=== PATIENT | male | born 1945 | race Caucasian/White ===

== ENCOUNTER → 2019-04-17 | Outpatient (CLI) | payer MEDICARE ==
[~2019-04-17] MED LIST: ASPIRIN81 MG PO; LANTUS100 UNITS/ SQ; LISINOPRIL10 MG; LOVASTATIN40 MG; METFORMIN HCL1000 MG; MULTI-VITAMIN1 EACH PO; NOVOLOG100 UNIT/1 SQ; PLAVIX75 MG PO
--- NOTE | 2019-04-17 10:05 | Diagnostic Imaging Report ---
EXAMINATION: PA and lateral views of the chest. COMPARISON: None CLINICAL HISTORY: Cough DISCUSSION: The lungs are well-inflated. No focal airspace consolidation, pleural effusion, or pneumothorax. Tortuous thoracic aorta with atherosclerotic calcification. Normal heart size. No overt pulmonary edema. No acute osseous abnormality. 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 IMPRESSION: No acute cardiopulmonary abnormalities. Signed by: Dr. John Perez M.D. on 04/17/2019 10:01 AM
== END ==
LOC: RAD 09:20
DX: R05 Cough (principal)
CPT/HCPCS: 71046

== ENCOUNTER 2023-05-24 13:11 | Inpatient (IN) | payer MEDICARE ==
[~2023-05-24] VITALS: Ht 167.6 cm; Wt 104.3 kg
[2023-05-24 14:44] LABS: BASOPHILS % 0.3 % (0.0-1.0); EOSINOPHILS # (AUTO) 0.2 (0.0-0.4); EOSINOPHILS % 1.6 % (0.0-6.0); HEMATOCRIT 43.1 % (38.2-49.6); HEMOGLOBIN 13.9 g/dL (14.0-18.0); LYMPHOCYTES # (AUTO) 0.8 (1.0-3.2); LYMPHOCYTES % 6.9 % (18.0-39.1); MEAN CORPUSCULAR HEMOGLOBIN 30.2 pg (28-32); MEAN CORPUSCULAR HGB CONC 32.3 g/dL (31-35); MEAN CORPUSCULAR VOLUME 93.5 fL (81-99); MONOCYTES # (AUTO) 0.9 (0.2-0.8); MONOCYTES % 7.5 % (4.4-11.3); NEUTROPHILS % 83.3 % (38.7-80.0); PLATELET COUNT 267 x10e3/uL (140-360); RED BLOOD COUNT 4.61 x10e6/uL (4.3-5.7); RED CELL DISTRIBUTION WIDTH 13.2 % (11.7-14.4); WHITE BLOOD COUNT 12.02 x10e3/uL (4.8-10.8)
[2023-05-24 14:58] LABS: ALBUMIN 3.8 g/dL (3.5-5.0); ALBUMIN/GLOBULIN RATIO 1.3 (0.8-2.0); ANION GAP 15.3 mmol/L (8-16); BILIRUBIN,TOTAL 0.6 mg/dL (0.2-1.2); CALCIUM 8.7 mg/dL (8.4-10.2); CREATININE, SERUM 1.14 mg/dL (0.72-1.25); POTASSIUM 4.3 mmol/L (3.5-5.1); TOTAL PROTEIN 6.8 g/dL (6.5-8.1)
[2023-05-24] MEDS ORDERED: SODIUM CHLORIDE 0.9% 1000ML 1,000 ML IV STA (14:59)
[2023-05-24 15:08] LABS: B-TYPE NATRIURETIC PEPTIDE2 224.5 pg/mL (0-100)
[2023-05-24] MEDS ORDERED: Vancomycin IV 1 GM in SODIUM CHLORIDE 0.9% 250ML 250 ML IV ONE (15:30)
[2023-05-24 16:14] VITALS: PULSE 75; RESP 20; O2SAT 97
[2023-05-24 16:36] LABS: TROPONIN I 2.263 ng/mL (0-0.300)
[2023-05-24] MEDS: SODIUM CHLORIDE 0.9% 1000ML 1,000 ML IV SCH (16:47)
[2023-05-24] MEDS ORDERED: LASIX20 MG PO (17:08)
[2023-05-24] MEDS ORDERED: BASAGLAR K100 UNIT/1 SQ (17:08)
[2023-05-24] MEDS ORDERED: ONDANSETRON HCL INJ 2MG/ML 2ML 2 MG/ML VIAL IV PRN (17:15)
[2023-05-24] MEDS ORDERED: HYDRALAZINE HCL 20 MG/ML VIAL IV PRN (17:15)
[2023-05-24] MEDS ORDERED: DEXTROSE 50% SYRINGE 50 ML IV PRN (17:15)
[2023-05-24] MEDS ORDERED: ACETAMINOPHEN 325 MG TAB PO PRN (17:15)
[2023-05-24] MEDS ORDERED: IOPAMIDOL 370 MG/ML 100 ML INFUS..BTL INJ ONE (17:44)
[2023-05-24 20:00] VITALS: BP 141/69; PULSE 101; RESP 20; TEMP 97.9; O2SAT 98
[2023-05-24] MEDS: INSULIN LISPRO 100 UNIT/1 ML 3ML VIAL SQ SCH (20:39)
[2023-05-24 21:00] VITALS: BP 141/69; PULSE 101; RESP 20; TEMP 97.9; O2SAT 98
[2023-05-24 23:29] LABS: CLARITY,URINE CLEAR (CLEAR); COLOR,URINE YELLOW (YELLOW); GLUCOSE, URINE NEGATIVE (NEGATIVE); LEUKOCYTE ESTERASE ,URINE NEGATIVE (NEGATIVE); NITRITE,URINE NEGATIVE (NEGATIVE); PH,URINE 7 (5 - 7); PROTEIN,URINE DIPSTICK NEGATIVE (NEGATIVE)
[2023-05-24 23:30] LABS: BILIRUBIN,URINE NEGATIVE (NEGATIVE); KETONES,URINE 2+ (NEGATIVE)
[2023-05-24 23:56] LABS: BACTERIA,URINE FEW /HPF; EPITHELIAL CELLS,URINE FEW /LPF; RBC,URINE 0-5 /HPF (0-5); WBC,URINE (MAN) 0-5 /HPF (0-5)
[2023-05-25] VITALS (8 sets, daily range): BP systolic 122–187; BP diastolic 50–84; PULSE 89–109; RESP 17–20; TEMP 98.1–98.9; O2SAT 92–96
[2023-05-25] MEDS: SODIUM CHLORIDE 0.9% 1000ML 1,000 ML IV SCH (00:11)
[2023-05-25 01:12] LABS: TROPONIN I 2.485 ng/mL (0-0.300)
[2023-05-25 06:26] LABS: BASOPHILS # (AUTO) 0.1 (0.0-0.1); BASOPHILS % 0.5 % (0.0-1.0); EOSINOPHILS # (AUTO) 0.3 (0.0-0.4); EOSINOPHILS % 2.6 % (0.0-6.0); HEMATOCRIT 36.9 % (38.2-49.6); HEMOGLOBIN 12.1 g/dL (14.0-18.0); LYMPHOCYTES # (AUTO) 1.1 (1.0-3.2); LYMPHOCYTES % 10.1 % (18.0-39.1); MEAN CORPUSCULAR HGB CONC 32.8 g/dL (31-35); MEAN CORPUSCULAR VOLUME 91.6 fL (81-99); MONOCYTES % 9.1 % (4.4-11.3); NEUTROPHILS # (AUTO) 8.5 (2.1-6.9); NEUTROPHILS % 77.2 % (38.7-80.0); PLATELET COUNT 252 x10e3/uL (140-360); RED BLOOD COUNT 4.03 x10e6/uL (4.3-5.7); RED CELL DISTRIBUTION WIDTH 13.2 % (11.7-14.4); WHITE BLOOD COUNT 10.99 x10e3/uL (4.8-10.8)
[2023-05-25 06:49] LABS: ANION GAP 14.1 mmol/L (8-16); CALCIUM 8.2 mg/dL (8.4-10.2); CREATININE, SERUM 0.89 mg/dL (0.72-1.25); POTASSIUM 4.1 mmol/L (3.5-5.1); TOTAL PROTEIN 5.9 g/dL (6.5-8.1)
[2023-05-25 07:07] LABS: CHOL/HDL RATIO 2.9 (3.9-4.7)
[2023-05-25] MEDS: INSULIN LISPRO 100 UNIT/1 ML 3ML VIAL SQ SCH ×4 (07:30→21:39)
[2023-05-25] MEDS: SENNOSIDES 8.6 MG TAB PO SCH (09:00)
[2023-05-25] MEDS ORDERED: FUROSEMIDE 20 MG TAB PO SCH (09:00)
[2023-05-25 09:54] LABS: TROPONIN I 1.882 ng/mL (0-0.300)
[2023-05-25] MEDS: ASPIRIN 81 MG CHEW TAB PO SCH (12:50)
[2023-05-25] MEDS: MULTIVITAMINS/MINERALS TAB PO SCH (12:50)
[2023-05-25] MEDS: SIMVASTATIN 20 MG TAB PO SCH (12:51)
[2023-05-25] MEDS: CLOPIDOGREL BISULFATE 75 MG TAB PO SCH (12:51)
[2023-05-25] MEDS ORDERED: MUPIROCIN 2% OINT 22 GM TUBE TOP SCH (13:00)
[2023-05-25] MEDS: LISINOPRIL 10 MG TAB PO SCH (13:19)
[2023-05-25] MEDS ORDERED: DAPTOMYCIN 500mg 10ML 1,000 MG in SODIUM CHLORIDE 0.9% 100 ML IV ONE (13:30)
[2023-05-25] MEDS: ENOXAPARIN SOD INJ 40 MG/0.4 ML SYR SC SCH (17:01)
[2023-05-25] MEDS: NYSTATIN 15 GM POWDER UD BTL TOP SCH (17:03)
[2023-05-25] MEDS ORDERED: METOPROLOL TARTRATE 50 MG TAB PO ONE (19:45)
[2023-05-25] MEDS ORDERED: MAGNESIUM/ALUMINUM/SIMETHICONE 30 ML UDC PO PRN (20:00)
[2023-05-25] MEDS ORDERED: MAGNESIUM/ALUMINUM/SIMETHICONE 30 ML UDC PO ONE (20:30)
[2023-05-25] MEDS ORDERED: PANTOPRAZOLE SOD 40 MG TABEC PO ONE (20:30)
[2023-05-25] MEDS ORDERED: INSULIN GLARGINE 100 UNITS/ML VIAL SQ SCH (21:00)
[2023-05-26] VITALS (9 sets, daily range): BP systolic 108–128; BP diastolic 56–67; PULSE 77–96; RESP 18–22; TEMP 97.6–98.9; O2SAT 92–96
[2023-05-26] MEDS: METOPROLOL TARTRATE 25 MG TAB PO SCH ×4 (00:45→17:38)
[2023-05-26] MEDS ORDERED: SODIUM CHLORIDE 0.9% 250ML 250 ML ONE (04:19)
[2023-05-26 06:22] LABS: BASOPHILS # (AUTO) 0.1 (0.0-0.1); BASOPHILS % 0.5 % (0.0-1.0); EOSINOPHILS # (AUTO) 0.4 (0.0-0.4); EOSINOPHILS % 2.7 % (0.0-6.0); HEMATOCRIT 39.5 % (38.2-49.6); HEMOGLOBIN 12.7 g/dL (14.0-18.0); LYMPHOCYTES # (AUTO) 1.2 (1.0-3.2); LYMPHOCYTES % 9.4 % (18.0-39.1); MEAN CORPUSCULAR HEMOGLOBIN 30.5 pg (28-32); MEAN CORPUSCULAR HGB CONC 32.2 g/dL (31-35); MONOCYTES # (AUTO) 1.1 (0.2-0.8); MONOCYTES % 8.7 % (4.4-11.3); NEUTROPHILS # (AUTO) 10.3 (2.1-6.9); NEUTROPHILS % 78.2 % (38.7-80.0); PLATELET COUNT 250 x10e3/uL (140-360); RED BLOOD COUNT 4.16 x10e6/uL (4.3-5.7); RED CELL DISTRIBUTION WIDTH 13.2 % (11.7-14.4); WHITE BLOOD COUNT 13.13 x10e3/uL (4.8-10.8)
[2023-05-26 07:27] LABS: ALBUMIN/GLOBULIN RATIO 0.9 (0.8-2.0); BILIRUBIN,TOTAL 0.8 mg/dL (0.2-1.2); CALCIUM 8.3 mg/dL (8.4-10.2); CREATININE, SERUM 1.05 mg/dL (0.72-1.25); TOTAL PROTEIN 6.2 g/dL (6.5-8.1)
[2023-05-26] MEDS: SENNOSIDES 8.6 MG TAB PO SCH (09:06)
[2023-05-26] MEDS: ASPIRIN 81 MG CHEW TAB PO SCH (09:06)
[2023-05-26] MEDS: MULTIVITAMINS/MINERALS TAB PO SCH (09:06)
[2023-05-26] MEDS: PANTOPRAZOLE SOD 40 MG TABEC PO SCH (09:06)
[2023-05-26] MEDS: LISINOPRIL 10 MG TAB PO SCH (09:07)
[2023-05-26] MEDS: CLOPIDOGREL BISULFATE 75 MG TAB PO SCH (09:07)
[2023-05-26] MEDS: SIMVASTATIN 20 MG TAB PO SCH (09:07)
[2023-05-26] MEDS: MUPIROCIN 2% OINT 22 GM TUBE TOP SCH (09:08)
[2023-05-26] MEDS: NYSTATIN 15 GM POWDER UD BTL TOP SCH ×2 (09:09→17:35)
[2023-05-26] MEDS: INSULIN LISPRO 100 UNIT/1 ML 3ML VIAL SQ SCH ×4 (09:10→21:00)
[2023-05-26] MEDS: LEVALBUTEROL HCL SOLN NEBU 0.63 MG/3 ML NEB INH SCH ×2 (11:14→19:17)
[2023-05-26] MEDS: FUROSEMIDE INJ 10 MG/ML 4 ML VIAL IV SCH ×2 (14:43→17:34)
[2023-05-26] MEDS: ENOXAPARIN SOD INJ 40 MG/0.4 ML SYR SC SCH (17:35)
[2023-05-26] MEDS: INSULIN GLARGINE 100 UNITS/ML VIAL SQ SCH (21:31)
[2023-05-27] VITALS (12 sets, daily range): BP systolic 111–141; BP diastolic 50–67; PULSE 73–108; RESP 18–22; TEMP 97.8–98.6; O2SAT 64–100
[2023-05-27] MEDS: METOPROLOL TARTRATE 25 MG TAB PO SCH ×4 (00:43→17:44)
[2023-05-27] MEDS: LEVALBUTEROL HCL SOLN NEBU 0.63 MG/3 ML NEB INH SCH ×4 (01:25→17:34)
[2023-05-27 08:41] LABS: BASOPHILS # (AUTO) 0.1 (0.0-0.1); BASOPHILS % 0.5 % (0.0-1.0); EOSINOPHILS # (AUTO) 0.5 (0.0-0.4); EOSINOPHILS % 3.8 % (0.0-6.0); HEMATOCRIT 37.9 % (38.2-49.6); HEMOGLOBIN 12.3 g/dL (14.0-18.0); LYMPHOCYTES # (AUTO) 1.1 (1.0-3.2); LYMPHOCYTES % 9.1 % (18.0-39.1); MEAN CORPUSCULAR HEMOGLOBIN 30.4 pg (28-32); MEAN CORPUSCULAR HGB CONC 32.5 g/dL (31-35); MEAN CORPUSCULAR VOLUME 93.8 fL (81-99); MONOCYTES % 8.1 % (4.4-11.3); NEUTROPHILS # (AUTO) 9.5 (2.1-6.9); NEUTROPHILS % 78.1 % (38.7-80.0); PLATELET COUNT 226 x10e3/uL (140-360); RED BLOOD COUNT 4.04 x10e6/uL (4.3-5.7); RED CELL DISTRIBUTION WIDTH 13.2 % (11.7-14.4); WHITE BLOOD COUNT 12.15 x10e3/uL (4.8-10.8)
[2023-05-27 09:02] LABS: ALBUMIN 2.9 g/dL (3.5-5.0); ALBUMIN/GLOBULIN RATIO 0.8 (0.8-2.0); ANION GAP 16.9 mmol/L (8-16); BILIRUBIN,TOTAL 0.9 mg/dL (0.2-1.2); CALCIUM 8.5 mg/dL (8.4-10.2); CREATININE, SERUM 1.1 mg/dL (0.72-1.25); POTASSIUM 3.9 mmol/L (3.5-5.1); TOTAL PROTEIN 6.4 g/dL (6.5-8.1)
[2023-05-27] MEDS: ASPIRIN 81 MG CHEW TAB PO SCH (09:43)
[2023-05-27] MEDS: MULTIVITAMINS/MINERALS TAB PO SCH (09:43)
[2023-05-27] MEDS: SENNOSIDES 8.6 MG TAB PO SCH (09:44)
[2023-05-27] MEDS: CLOPIDOGREL BISULFATE 75 MG TAB PO SCH (09:44)
[2023-05-27] MEDS: LISINOPRIL 10 MG TAB PO SCH (09:44)
[2023-05-27] MEDS: SIMVASTATIN 20 MG TAB PO SCH (09:44)
[2023-05-27] MEDS: PANTOPRAZOLE SOD 40 MG TABEC PO SCH (09:44)
[2023-05-27] MEDS: NYSTATIN 15 GM POWDER UD BTL TOP SCH ×2 (09:45→17:44)
[2023-05-27] MEDS: MUPIROCIN 2% OINT 22 GM TUBE TOP SCH (09:45)
[2023-05-27] MEDS: FUROSEMIDE INJ 10 MG/ML 4 ML VIAL IV SCH ×2 (09:45→17:54)
[2023-05-27] MEDS: INSULIN LISPRO 100 UNIT/1 ML 3ML VIAL SQ SCH ×4 (09:46→20:29)
[2023-05-27] MEDS ORDERED: METOLAZONE 5 MG TAB PO ONE (17:00)
[2023-05-27] MEDS: ENOXAPARIN SOD INJ 40 MG/0.4 ML SYR SC SCH (17:44)
[2023-05-27] MEDS: INSULIN GLARGINE 100 UNITS/ML VIAL SQ SCH (20:28)
[2023-05-28] VITALS (10 sets, daily range): BP systolic 116–119; BP diastolic 46–98; PULSE 75–99; RESP 16–21; TEMP 98.1–98.2; O2SAT 93–99
[2023-05-28] MEDS: METOPROLOL TARTRATE 25 MG TAB PO SCH ×4 (00:19→18:01)
[2023-05-28] MEDS: LEVALBUTEROL HCL SOLN NEBU 0.63 MG/3 ML NEB INH SCH ×4 (01:39→19:49)
[2023-05-28 06:45] LABS: ALBUMIN 2.9 g/dL (3.5-5.0); ALBUMIN/GLOBULIN RATIO 0.7 (0.8-2.0); ANION GAP 18.4 mmol/L (8-16); BILIRUBIN,TOTAL 0.7 mg/dL (0.2-1.2); CALCIUM 8.7 mg/dL (8.4-10.2); CREATININE, SERUM 1.14 mg/dL (0.72-1.25); POTASSIUM 4.4 mmol/L (3.5-5.1); TOTAL PROTEIN 6.8 g/dL (6.5-8.1)
[2023-05-28] MEDS: ASPIRIN 81 MG CHEW TAB PO SCH (09:12)
[2023-05-28] MEDS: FUROSEMIDE INJ 10 MG/ML 4 ML VIAL IV SCH ×2 (09:12→18:00)
[2023-05-28] MEDS: LISINOPRIL 10 MG TAB PO SCH (09:12)
[2023-05-28] MEDS: SIMVASTATIN 20 MG TAB PO SCH (09:12)
[2023-05-28] MEDS: MULTIVITAMINS/MINERALS TAB PO SCH (09:13)
[2023-05-28] MEDS: CLOPIDOGREL BISULFATE 75 MG TAB PO SCH (09:13)
[2023-05-28] MEDS: SENNOSIDES 8.6 MG TAB PO SCH (09:13)
[2023-05-28] MEDS: INSULIN LISPRO 100 UNIT/1 ML 3ML VIAL SQ SCH ×4 (09:14→21:00)
[2023-05-28] MEDS: PANTOPRAZOLE SOD 40 MG TABEC PO SCH (09:14)
[2023-05-28] MEDS: MUPIROCIN 2% OINT 22 GM TUBE TOP SCH (09:21)
[2023-05-28] MEDS: NYSTATIN 15 GM POWDER UD BTL TOP SCH ×2 (09:21→18:00)
[2023-05-28 11:57] LABS: BASOPHILS # (AUTO) 0.1 (0.0-0.1); BASOPHILS % 0.7 % (0.0-1.0); EOSINOPHILS # (AUTO) 0.7 (0.0-0.4); EOSINOPHILS % 5.7 % (0.0-6.0); HEMATOCRIT 40.2 % (38.2-49.6); HEMOGLOBIN 13.1 g/dL (14.0-18.0); LYMPHOCYTES # (AUTO) 1.3 (1.0-3.2); LYMPHOCYTES % 11.1 % (18.0-39.1); MEAN CORPUSCULAR HEMOGLOBIN 30.3 pg (28-32); MEAN CORPUSCULAR HGB CONC 32.6 g/dL (31-35); MEAN CORPUSCULAR VOLUME 93.1 fL (81-99); MONOCYTES # (AUTO) 0.9 (0.2-0.8); MONOCYTES % 8.2 % (4.4-11.3); NEUTROPHILS # (AUTO) 8.5 (2.1-6.9); PLATELET COUNT 265 x10e3/uL (140-360); RED BLOOD COUNT 4.32 x10e6/uL (4.3-5.7); RED CELL DISTRIBUTION WIDTH 13.1 % (11.7-14.4); WHITE BLOOD COUNT 11.49 x10e3/uL (4.8-10.8)
[2023-05-28] MEDS: ONDANSETRON HCL 4 MG ORAL DISINTEGRATING TAB PO PRN ×2 (17:25→17:26)
[2023-05-28] MEDS: ENOXAPARIN SOD INJ 40 MG/0.4 ML SYR SC SCH (18:00)
[2023-05-28] MEDS: INSULIN GLARGINE 100 UNITS/ML VIAL SQ SCH (21:00)
[2023-05-29] VITALS (11 sets, daily range): BP systolic 120–146; BP diastolic 54–69; PULSE 76–92; RESP 18–22; TEMP 98.1–98.6; O2SAT 94–98
[2023-05-29] MEDS: METOPROLOL TARTRATE 25 MG TAB PO SCH ×2 (00:41→06:11)
[2023-05-29] MEDS: LEVALBUTEROL HCL SOLN NEBU 0.63 MG/3 ML NEB INH SCH ×4 (01:13→19:08)
[2023-05-29 06:14] LABS: BASOPHILS # (AUTO) 0.1 (0.0-0.1); BASOPHILS % 0.6 % (0.0-1.0); EOSINOPHILS # (AUTO) 0.9 (0.0-0.4); EOSINOPHILS % 6.8 % (0.0-6.0); HEMATOCRIT 41.5 % (38.2-49.6); HEMOGLOBIN 13.5 g/dL (14.0-18.0); LYMPHOCYTES # (AUTO) 1.3 (1.0-3.2); LYMPHOCYTES % 10.4 % (18.0-39.1); MEAN CORPUSCULAR HEMOGLOBIN 30.2 pg (28-32); MEAN CORPUSCULAR HGB CONC 32.5 g/dL (31-35); MEAN CORPUSCULAR VOLUME 92.8 fL (81-99); MONOCYTES # (AUTO) 1.2 (0.2-0.8); MONOCYTES % 9.5 % (4.4-11.3); NEUTROPHILS # (AUTO) 9.3 (2.1-6.9); NEUTROPHILS % 72.1 % (38.7-80.0); PLATELET COUNT 293 x10e3/uL (140-360); RED BLOOD COUNT 4.47 x10e6/uL (4.3-5.7); WHITE BLOOD COUNT 12.84 x10e3/uL (4.8-10.8)
[2023-05-29 06:30] LABS: ALBUMIN/GLOBULIN RATIO 0.8 (0.8-2.0); ANION GAP 16.2 mmol/L (8-16); BILIRUBIN,TOTAL 0.6 mg/dL (0.2-1.2); CALCIUM 9.5 mg/dL (8.4-10.2); CREATININE, SERUM 1.35 mg/dL (0.72-1.25); POTASSIUM 4.2 mmol/L (3.5-5.1); TOTAL PROTEIN 6.9 g/dL (6.5-8.1)
[2023-05-29] MEDS: FUROSEMIDE INJ 10 MG/ML 4 ML VIAL IV SCH (09:27)
[2023-05-29] MEDS: CLOPIDOGREL BISULFATE 75 MG TAB PO SCH (09:27)
[2023-05-29] MEDS: MULTIVITAMINS/MINERALS TAB PO SCH (09:27)
[2023-05-29] MEDS: PANTOPRAZOLE SOD 40 MG TABEC PO SCH (09:27)
[2023-05-29] MEDS: ASPIRIN 81 MG CHEW TAB PO SCH (09:27)
[2023-05-29] MEDS: SIMVASTATIN 20 MG TAB PO SCH (09:28)
[2023-05-29] MEDS: SENNOSIDES 8.6 MG TAB PO SCH (09:28)
[2023-05-29] MEDS: NYSTATIN 15 GM POWDER UD BTL TOP SCH ×2 (09:32→17:07)
[2023-05-29] MEDS: MUPIROCIN 2% OINT 22 GM TUBE TOP SCH (09:33)
[2023-05-29] MEDS: LISINOPRIL 10 MG TAB PO SCH (09:42)
[2023-05-29] MEDS: INSULIN GLARGINE 100 UNITS/ML VIAL SQ SCH ×2 (09:50→21:00)
[2023-05-29] MEDS: INSULIN LISPRO 100 UNIT/1 ML 3ML VIAL SQ SCH ×4 (09:50→21:00)
[2023-05-29] MEDS ORDERED: METOPROLOL SUCCINATE 50 MG TAB XL PO SCH (10:45)
[2023-05-29] MEDS: METOPROLOL SUCCINATE 25 MG TAB XL PO SCH (12:12)
[2023-05-29] MEDS: ENOXAPARIN SOD INJ 40 MG/0.4 ML SYR SC SCH (17:03)
[2023-05-30] VITALS (7 sets, daily range): BP systolic 113–142; BP diastolic 48–59; PULSE 81–96; RESP 18–20; TEMP 97.8–98.7; O2SAT 93–98
[2023-05-30] MEDS: LEVALBUTEROL HCL SOLN NEBU 0.63 MG/3 ML NEB INH SCH ×3 (00:22→11:59)
[2023-05-30 07:18] LABS: BASOPHILS # (AUTO) 0.1 (0.0-0.1); BASOPHILS % 0.6 % (0.0-1.0); EOSINOPHILS # (AUTO) 0.9 (0.0-0.4); EOSINOPHILS % 7.8 % (0.0-6.0); HEMATOCRIT 41.4 % (38.2-49.6); HEMOGLOBIN 13.6 g/dL (14.0-18.0); LYMPHOCYTES # (AUTO) 1.4 (1.0-3.2); LYMPHOCYTES % 12.4 % (18.0-39.1); MEAN CORPUSCULAR HEMOGLOBIN 29.8 pg (28-32); MEAN CORPUSCULAR HGB CONC 32.9 g/dL (31-35); MEAN CORPUSCULAR VOLUME 90.6 fL (81-99); MONOCYTES % 8.7 % (4.4-11.3); NEUTROPHILS # (AUTO) 7.8 (2.1-6.9); PLATELET COUNT 312 x10e3/uL (140-360); RED BLOOD COUNT 4.57 x10e6/uL (4.3-5.7); RED CELL DISTRIBUTION WIDTH 13.2 % (11.7-14.4); WHITE BLOOD COUNT 11.08 x10e3/uL (4.8-10.8)
[2023-05-30] MEDS: INSULIN LISPRO 100 UNIT/1 ML 3ML VIAL SQ SCH ×2 (07:30→12:04)
[2023-05-30 07:37] LABS: ALBUMIN/GLOBULIN RATIO 0.8 (0.8-2.0); ANION GAP 15.1 mmol/L (8-16); BILIRUBIN,TOTAL 0.5 mg/dL (0.2-1.2); CALCIUM 9.7 mg/dL (8.4-10.2); CREATININE, SERUM 1.27 mg/dL (0.72-1.25); POTASSIUM 4.1 mmol/L (3.5-5.1)
[2023-05-30] MEDS: SENNOSIDES 8.6 MG TAB PO SCH (09:00)
[2023-05-30] MEDS ORDERED: FUROSEMIDE 40 MG TAB PO SCH (09:00)
[2023-05-30] MEDS: ASPIRIN 81 MG CHEW TAB PO SCH (09:49)
[2023-05-30] MEDS: CLOPIDOGREL BISULFATE 75 MG TAB PO SCH (09:50)
[2023-05-30] MEDS: MULTIVITAMINS/MINERALS TAB PO SCH (09:50)
[2023-05-30] MEDS: PANTOPRAZOLE SOD 40 MG TABEC PO SCH (09:50)
[2023-05-30] MEDS: SIMVASTATIN 20 MG TAB PO SCH (09:51)
[2023-05-30] MEDS: METOPROLOL SUCCINATE 25 MG TAB XL PO SCH (09:51)
[2023-05-30] MEDS: NYSTATIN 15 GM POWDER UD BTL TOP SCH (09:52)
[2023-05-30] MEDS: MUPIROCIN 2% OINT 22 GM TUBE TOP SCH (11:01)
[2023-05-30] MEDS: LISINOPRIL 10 MG TAB PO SCH (11:04)
[2023-05-30] MEDS: BENZONATATE 100 MG CAP PO SCH ×2 (11:04→13:45)
[2023-05-30] MEDS: INSULIN GLARGINE 100 UNITS/ML VIAL SQ SCH (11:14)
== END 2023-05-30 17:45 | DRG 871 ==
LOC: ER 13:20 → ERHOLD 15:47 → MED/SURG3 17:57
PROVIDERS: ADMIT Internal Medicine; ATTEND Internal Medicine
DX: A41.9 Sepsis, unspecified organism (principal); I21.A1 Myocardial infarction type 2; I50.43 Acute on chronic combined systolic (congestive) and diastolic (congestive) heart failure; L03.116 Cellulitis of left lower limb; L97.808 Non-pressure chronic ulcer of other part of unspecified lower leg with other specified severity; I13.0 Hypertensive heart and chronic kidney disease with heart failure and stage 1 through stage 4 chronic kidney disease, or unspecified chronic kidney disease; R65.20 Severe sepsis without septic shock; E11.319 Type 2 diabetes mellitus with unspecified diabetic retinopathy without macular edema; Z68.37 Body mass index [BMI] 37.0-37.9, adult; E66.9 Obesity, unspecified; I25.10 Atherosclerotic heart disease of native coronary artery without angina pectoris; R53.81 Other malaise; I35.0 Nonrheumatic aortic (valve) stenosis; E11.40 Type 2 diabetes mellitus with diabetic neuropathy, unspecified; E11.22 Type 2 diabetes mellitus with diabetic chronic kidney disease; I87.2 Venous insufficiency (chronic) (peripheral); R60.0 Localized edema; N18.2 Chronic kidney disease, stage 2 (mild); R53.1 Weakness; E78.00 Pure hypercholesterolemia, unspecified; Z79.82 Long term (current) use of aspirin; Z95.5 Presence of coronary angioplasty implant and graft; Z79.4 Long term (current) use of insulin; Z79.02 Long term (current) use of antithrombotics/antiplatelets; Z20.822 Contact with and (suspected) exposure to COVID-19
CPT/HCPCS: 36415; 71045; 71260; 80053; 80061; 80202; 81001; 82550; 82948; 83036; 83605; 83880; 84484; 85025; 87040; 93005; 93306; 93971; 94640; 94799; 96372; 99252; 99284; J0692; J1650; J1815; J1940; J2543; J7030; J7050; Q0162; Q9967; U0002